=== PATIENT | male | born 1965 | race Caucasian/White ===

== ENCOUNTER 2022-09-26 06:05 | Observation (INO) | payer BC ==
[2022-09-20 09:21] VITALS: BMI 32.5
[2022-09-20 09:51] LABS: #Basophils 0.1 10x3/uL (0.0-0.2); #Eosinphils 0.1 10x3/uL (0.0-0.5); #Monocytes 0.8 10x3/uL (0.0-1.1); #Neutrophils 3.4 10x3/uL (1.5-8.4); %Eosinophils 1.9 % (0.0-6.0); %Monocytes 11.4 % (0.0-10.0); %Neutrophils 49.4 % (40.0-75.0); Bilirubin Neg (Negative); Blood, Urine Negative (Negative); Clarity Clear (Clear); Glucose, Urine (Dipstick) >=1000 mg/dL (Negative); Hemoglobin 15.8 g/dL (13.5-17.5); Ketone, Urine 15 mg/dL (Negative); Leukocyte Negative (Negative); Mean Corpuscular HGB CONC 33.6 g/dL (32.0-36.0); Mean Corpuscular Hemoglobin 32.7 pg (27.0-33.0); Mean Corpuscular Volume 97.3 fl (81.2-95.1); Mean Platelet Volume 10.6 fl (7.4-10.4); Nitrite Negative (Negative); Platelet Count 210 10x3/uL (150-450); Protein, Urine (Dipstick) Negative (Neg-Trace); RBC Distribution Width 12.9 % (11.5-14.5); Red Blood Cell (RBC) Count 4.83 10x6/uL (4.32-5.72); Specific Gravity, Urine 1.015 (1.005-1.030); Urobilinogen Normal mg/dL (Less than 2); White Blood Cell (WBC) Count 6.9 10x3/uL (3.5-10.5)
[2022-09-20 10:08] LABS: Anion Gap 16 mmol/L (10-20); BUN (Urea Nitrogen) 18 mg/dL (8.4-25.7); Calc. Creatinine Clearance 0 mL/min (70-130); Calcium 9.2 mg/dL (7.8-10.44); Carbon Dioxide 24 mmol/L (22-29); Chloride 102 mmol/L (98-107); Estimated GFR 85; Glucose 116 mg/dL (70-105); Potassium 4.6 mmol/L (3.5-5.1); Sodium 137 mmol/L (136-145)
[2022-09-20 10:29] LABS: Prothrombin Time 10.8 sec (9.5-12.1)
[2022-09-26] MEDS ORDERED: CEFAZOLIN 2 GM VIAL ONE (07:07)
[2022-09-26] MEDS ORDERED: Sodium Chloride 0.9% 100 ML ONE ×2 (07:07→07:31)
[2022-09-26] MEDS ORDERED: Tranexamic Acid 1,000 MG/10 ML VIAL ONE (07:31)
[2022-09-26] MEDS ORDERED: Vancomycin (BATCH) 1.5 GRAM/300 ML BAG ONE (07:31)
[2022-09-26] MEDS ORDERED: Acetaminophen 500 MG TAB ONE (08:11)
[2022-09-26] MEDS ORDERED: Midazolam HCl 2 mg/2 ml Vial ONE ×2 (08:19→09:37)
[2022-09-26] MEDS ORDERED: fentaNYL 50 mcg/mL 1 mL Vial ONE ×5 (08:19→13:55)
[2022-09-26] MEDS ORDERED: Ropivacaine 0.5% HCl/PF (150 MG/30 ML VIAL) ONE (08:20)
[2022-09-26] MEDS ORDERED: Lidocaine 1% MPF 2 ML VIAL ONE (08:20)
[2022-09-26] MEDS ORDERED: Lidocaine 1% PF 5 ML VIAL ONE (09:13)
[2022-09-26] MEDS ORDERED: ePHEDrine Sulfate 50 MG/10 ML VIAL ONE (09:13)
[2022-09-26] MEDS ORDERED: Dexamethasone 20 MG/5 ML VIAL ONE (09:13)
[2022-09-26] MEDS ORDERED: Ondansetron PF 4 MG/2 ML Vial ONE (09:13)
[2022-09-26] MEDS ORDERED: PROPOFOL 200 MG/20 ML VIAL ONE (09:13)
[2022-09-26] MEDS ORDERED: fentaNYL PF 100 MCG/2 ML SYRINGE ONE (09:38)
[2022-09-26] MEDS ORDERED: Sevoflurane 250 ML INH ANEST BOTTLE ONE (09:44)
[2022-09-26] MEDS ORDERED: HYDROcodone/Acetaminophen 10/325 mg Tablet PO PRN ×2 (11:15)
[2022-09-26] MEDS ORDERED: fentaNYL 50 mcg/mL 1 mL Vial SLOW IVP PRN ×2 (11:15→12:03)
[2022-09-26] MEDS ORDERED: Acetaminophen 325 MG TAB PO PRN (11:15)
[2022-09-26] MEDS ORDERED: traMADol HCl 50 MG TAB PO PRN (11:15)
[2022-09-26] MEDS ORDERED: Tranexamic Acid 1,000 MG in Sodium Chloride 0.9% 100 ML IVPB SCH (11:15)
[2022-09-26] MEDS ORDERED: Promethazine HCl 25 MG/ML VIAL IM PRN ×3 (11:15→12:15)
[2022-09-26] MEDS ORDERED: diphenhydrAMINE 25 MG CAP PO PRN (11:15)
[2022-09-26] MEDS ORDERED: Zolpidem Tartrate 5 MG TAB PO PRN ×2 (11:15→12:15)
[2022-09-26] MEDS ORDERED: Ondansetron PF 4 MG/2 ML Vial IVP PRN ×2 (11:15→12:15)
[2022-09-26] MEDS ORDERED: Ondansetron HCl/PF 4 MG/2 ML Vial IVP PRN (11:20)
[2022-09-26] MEDS ORDERED: HYDROmorphone 2 MG/ML VIAL SLOW IVP PRN (11:20)
[2022-09-26] MEDS ORDERED: Ropivacaine 0.2% 550 ML 550 ML NERVE BLCK SCH (12:15)
[2022-09-26] MEDS ORDERED: Bupivacaine 0.25% HCL 30 ML VIAL ONE (13:29)
[2022-09-26] MEDS: CEFAZOLIN 2 GM in Sodium Chloride 0.9% 100 ML IVPB SCH ×2 (16:13→21:37)
[2022-09-26] MEDS: Acetaminophen 500 MG TAB PO SCH ×3 (16:14→22:27)
[2022-09-26] MEDS: Sodium Chloride 0.9% 1,000 ML IV SCH ×2 (16:16→21:36)
[2022-09-26] MEDS ORDERED: Ketorolac Tromethamine 30 MG/ML VIAL IVP SCH (18:00)
[2022-09-26] MEDS ORDERED: Vancomycin 1.5 GRAM/300 ML BAG 1.5 GM in Premix Bag 1 BAG IVPB SCH (20:00)
[2022-09-26] MEDS ORDERED: Simvastatin 10 MG TAB PO SCH (21:00)
[2022-09-26] MEDS ORDERED: Amitriptyline HCl 25 MG TAB PO SCH (21:00)
[2022-09-26] MEDS ORDERED: Empagliflozin 10 MG TAB PO SCH ×2 (21:00)
[2022-09-26] MEDS: metFORMIN 500 MG TAB PO SCH (21:38)
[2022-09-26] MEDS: Senokot S 8.6-50 MG TAB PO SCH (21:38)
[2022-09-26] MEDS: Ferrous Gluconate 324 MG TAB PO SCH (21:38)
[2022-09-26] MEDS: Aspirin 81 mg Enteric Coated Tablet PO SCH (21:38)
[2022-09-26] MEDS: oxyCODONE 5 MG TAB PO PRN (21:44)
[2022-09-27 06:13] LABS: Hemoglobin 12.3 g/dL (14.0-18.0); Mean Corpuscular HGB CONC 33.5 g/dL (32.0-36.0); Mean Corpuscular Hemoglobin 33.4 pg (27.0-31.0); Mean Corpuscular Volume 99.7 fl (78.0-98.0); Mean Platelet Volume 10.6 fL (7.4-10.4); Platelet Count 197 10x3/uL (130-400); RBC Distribution Width 13.3 % (11.5-14.5); Red Blood Cell (RBC) Count 3.68 mill/uL (4.70-6.10); White Blood Cell (WBC) Count 9.9 10x3/uL (4.8-10.8)
[2022-09-27] MEDS: Acetaminophen 500 MG TAB PO SCH (06:36)
[2022-09-27] MEDS: Ferrous Gluconate 324 MG TAB PO SCH (07:44)
[2022-09-27] MEDS: Senokot S 8.6-50 MG TAB PO SCH (07:44)
[2022-09-27] MEDS: Aspirin 81 mg Enteric Coated Tablet PO SCH (07:44)
[2022-09-27] MEDS: oxyCODONE 5 MG TAB PO PRN (07:44)
[2022-09-27] MEDS: metFORMIN 500 MG TAB PO SCH (07:47)
[2022-09-27] MEDS: Sodium Chloride 0.9% 1,000 ML IV SCH (08:48)
[2022-09-27] MEDS ORDERED: Multivitamin W/ Minerals 1 TAB PO SCH (09:00)
[2022-09-27 11:26] VITALS: BP 131/70; TEMP 98.1
== END 2022-09-27 12:31 | disposition home or self-care (01) ==
LOC: SDC 06:05 → SJJU 14:46
PROVIDERS: ADMIT Orthopaedic Surgery; ATTEND Orthopaedic Surgery
PROC: 0SRC0JZ Replacement of Right Knee Joint with Synthetic Substitute, Open Approach (ICD-10-PCS; principal; 2022-09-27)
DX: M17.11 Unilateral primary osteoarthritis, right knee (principal); E11.9 Type 2 diabetes mellitus without complications; F17.200 Nicotine dependence, unspecified, uncomplicated; Z96.652 Presence of left artificial knee joint; Z88.6 Allergy status to analgesic agent; Z79.899 Other long term (current) drug therapy
CPT/HCPCS: 36415; 80048; 81003; 85025; 85027; 85610; 86850; 86900; 86901; 87081; A4306; C1776; J1100; J2250; J2405; J2704; J2795; J3010; J3370; J3490; J7050; S0020